=== PATIENT | female | born 1975 | race Hispanic/Latino ===

== ENCOUNTER 2018-08-16 10:52 | Emergency (ER) | payer BC, MEDICAID ==
[2018-08-16 11:00] VITALS: BP 102/67
[2018-08-16] MEDS ORDERED: NACL 0.9% 1000 ML 1,000 ML IV ONE (12:23)
--- NOTE | 2018-08-16 12:23 | Emergency Department Report ---
ED General Adult HPI - General Chief complaint: Nausea/Vomiting/Diarrhea Stated complaint: HAIR FALLING OUT/LOST 10LBS Time Seen by Provider: 08/16/18 11:40 Source: patient Mode of arrival: Ambulatory Limitations: No Limitations - History of Present Illness Initial comments: Patient presents to the emergency department with a chief complaint of a 10 pound weight loss in the last month. Patient also complains of diarrhea times one week denies any antibiotic use. Patient states she is concerned because now her hair is falling out and she has discussed with her primary care physician without further workup being done. Patient does endorse having a significant amount stress recently with the depth of 3 close family members within the last month. -: Gradual Radiation: non-radiation Severity scale (0 -10): 0 Consistency: constant Improves with: none Worsens with: none Associated Symptoms: denies other symptoms Treatments Prior to Arrival: none - Related Data Previous Rx's Medication Instructions Recorded Last Taken Type ALBUTEROL Inhaler (OR & NICU) 2 puff IH QID PRN #1 unit 10/12/13 Unknown Rx [ProAir HFA Inhaler] Azithromycin [Zithromax] 500 mg PO QDAY #5 tablet 10/12/13 Unknown Rx Hycodan 5 ml PO QID #120 ml 10/12/13 Unknown Rx Ibuprofen [Motrin] 800 mg PO Q8H PRN #20 tablet 07/10/14 Unknown Rx Penicillin Vk [Veetids TAB] 2 tab PO BID #40 tablet 07/10/14 Unknown Rx Ibuprofen [Motrin] 600 mg PO Q8H PRN #15 tablet 10/29/16 Unknown Rx Sulfamethoxazole/Trimethoprim 1 each PO BID #20 tablet 10/29/16 Unknown Rx [Bactrim DS TAB] Ondansetron [Zofran Odt] 4 mg PO Q8HR #12 tab.rapdis 08/16/18 Unknown Rx Allergies Allergy/AdvReac Type Severity Reaction Status Date / Time No Known Allergies Allergy Verified 10/28/16 21:12 ED Review of Systems ROS: Stated complaint: HAIR FALLING OUT/LOST 10LBS Other details as noted in HPI Comment: All other systems reviewed and negative Constitutional: denies: chills, fever Eyes: denies: eye pain, eye discharge, vision change ENT: denies: ear pain, throat pain Respiratory: denies: cough, shortness of breath, wheezing Cardiovascular: denies: chest pain, palpitations Endocrine: no symptoms reported Gastrointestinal: denies: abdominal pain, nausea, diarrhea Genitourinary: denies: urgency, dysuria, discharge Musculoskeletal: denies: back pain, joint swelling, arthralgia Skin: denies: rash, lesions Neurological: denies: headache, weakness, paresthesias Psychiatric: denies: anxiety, depression Hematological/Lymphatic: denies: easy bleeding, easy bruising ED Past Medical Hx - Past Medical History Hx Diabetes: No (patient has family history of diabetes) Additional medical history: Hemorroids, DM, CAD - Surgical History Hx Appendectomy: Yes Additional Surgical History: tubal ligation - Social History Smoking Status: Never Smoker Substance Use Type: None - Medications Home Medications: Home Medications Medication Instructions Recorded Confirmed Last Taken Type ALBUTEROL Inhaler (OR & NICU) 2 puff IH QID PRN #1 unit 10/12/13 Unknown Rx [ProAir HFA Inhaler] Azithromycin [Zithromax] 500 mg PO QDAY #5 tablet 10/12/13 Unknown Rx Hycodan 5 ml PO QID #120 ml 10/12/13 Unknown Rx Ibuprofen [Motrin] 800 mg PO Q8H PRN #20 tablet 07/10/14 Unknown Rx Penicillin Vk [Veetids TAB] 2 tab PO BID #40 tablet 07/10/14 Unknown Rx Ibuprofen [Motrin] 600 mg PO Q8H PRN #15 tablet 10/29/16 Unknown Rx Sulfamethoxazole/Trimethoprim 1 each PO BID #20 tablet 10/29/16 Unknown Rx [Bactrim DS TAB] Ondansetron [Zofran Odt] 4 mg PO Q8HR #12 tab.rapdis 08/16/18 Unknown Rx ED Physical Exam - General Limitations: No Limitations General appearance: alert, in no apparent distress - Head Head exam: Present: atraumatic, normocephalic - Eye Eye exam: Present: normal appearance, PERRL, EOMI - ENT ENT exam: Present: mucous membranes moist - Neck Neck exam: Present: normal inspection - Respiratory Respiratory exam: Present: normal lung sounds bilaterally. Absent: respiratory distress, wheezes, rales, rhonchi - Cardiovascular Cardiovascular Exam: Present: regular rate, normal rhythm. Absent: systolic murmur, diastolic murmur, rubs, gallop - GI/Abdominal GI/Abdominal exam: Present: soft, normal bowel sounds. Absent: distended, tenderness - Extremities Exam Extremities exam: Present: normal inspection - Back Exam Back exam: Present: normal inspection - Neurological Exam Neurological exam: Present: alert, oriented X3, CN II-XII intact. Absent: motor sensory deficit - Psychiatric Psychiatric exam: Present: normal affect, normal mood - Skin Skin exam: Present: warm, dry, intact, normal color. Absent: rash ED Course Vital Signs 08/16/18 10:56 Temperature 99.6 F Pulse Rate 93 H Respiratory 17 Rate Blood Pressure 102/67 O2 Sat by Pulse 95 Oximetry ED Medical Decision Making - Lab Data Result diagrams: 08/16/18 12:27 08/16/18 12:27 - Medical Decision Making Discussed results with patient Critical care attestation.: If time is entered above; I have spent that time in minutes in the direct care of this critically ill patient, excluding procedure time. ED Disposition Clinical Impression: Diarrhea, Fatigue Disposition: - TO HOME OR SELFCARE Is pt being admited?: No Does the pt Need Aspirin: No Instructions: Fatigue (ED), Acute Diarrhea (ED) Additional Instructions: return if worse Prescriptions: Ondansetron [Zofran Odt] 4 mg PO Q8HR #12 tab.rapdis Referrals: LAUREN DALY MD [Staff Physician] - 3-5 Days SURAJ MARQUEZ MD [Staff Physician] - 3-5 Days TYRELL JORDAN MD [Staff Physician] - 3-5 Days Time of Disposition: 15:15
[2018-08-16 12:36] LABS: Hematocrit 31.3 % (30.3-42.9); Hemoglobin 10.8 gm/dl (10.1-14.3); Mean Corpuscular HGB Conc 34 % (30-34); Mean Corpuscular Hemoglobin 31 pg (28-32); Mean Corpuscular Volume 90 fl (79-97); Red Blood Count 3.47 M/mm3 (3.65-5.03); Red Cell Distribution Width 12.6 % (13.2-15.2)
[2018-08-16 12:38] LABS: Platelet Count 91 K/mm3 (140-440)
[2018-08-16 13:04] LABS: Alanine Aminotransferase 20 units/L (7-56); Albumin 3.8 g/dL (3.9-5); BUN/Creatinine Ratio 23; Blood Urea Nitrogen 9 mg/dL (7-17); Calcium 8.8 mg/dL (8.4-10.2); Hemolysis Index 6
[2018-08-16 13:36] LABS: Anisocytosis 1+; Basophils % (Manual) 0 % (0.0-1.8); Ovalocytes 1+; Platelet Estimate Cons; Poikilocytosis 1+; Total Cells Counted 100
== END 2018-08-16 15:23 | disposition home or self-care (01) ==
LOC: ED 10:52
DX: R19.7 Diarrhea, unspecified (principal); R53.83 Other fatigue; Z98.51 Tubal ligation status
CPT/HCPCS: 36415; 80053; 84436; 84443; 85007; 85025; 99283; J7030; 96360